=== PATIENT | male | born 1940 | race Caucasian/White ===

== ENCOUNTER → 2018-06-25 | Outpatient (CLI) | payer OTHER ==
[~2018-06-25] MED LIST: AMLO5TAB9 PO; ASPI-1181 PO; ATEN50TA PO; DOCU-272 PO; FENO160T16 PO; LISI10TA7 PO; MULT1CAP32 PO; NORT25CA3 PO; SIMV10TA6 PO; TYLENOL ARTHRITIS PO
== END | disposition home or self-care (01) ==
LOC: RAH 13:38
PROVIDERS: ATTEND Family Medicine
DX: S67.32XA Crushing injury of left wrist, initial encounter (principal); M19.032 Primary osteoarthritis, left wrist; W23.0XXA Caught, crushed, jammed, or pinched between moving objects, initial encounter; Y93.89 Activity, other specified; Y92.89 Other specified places as the place of occurrence of the external cause; Y99.8 Other external cause status
CPT/HCPCS: 73110

== ENCOUNTER → 2018-08-19 | Outpatient (CLI) | payer OTHER | END | disposition home or self-care (01) | LOC: RAH 09:35 | PROVIDERS: ATTEND Internal Medicine Critical Care Medicine | DX: Z01.818 Encounter for other preprocedural examination (principal); M85.88 Other specified disorders of bone density and structure, other site; M47.814 Spondylosis without myelopathy or radiculopathy, thoracic region; M41.84 Other forms of scoliosis, thoracic region | CPT/HCPCS: 71046 ==

== ENCOUNTER → 2019-02-24 | Outpatient (CLI) | payer OTHER | END | disposition home or self-care (01) | LOC: LAB 16:38 | PROVIDERS: ATTEND Internal Medicine Critical Care Medicine | DX: M17.0 Bilateral primary osteoarthritis of knee (principal); M25.761 Osteophyte, right knee; M25.462 Effusion, left knee; M25.461 Effusion, right knee | CPT/HCPCS: 73562 ==

== ENCOUNTER → 2019-04-01 | Outpatient (CLI) | payer OTHER ==
[~2019-04-01] MED LIST changes: -SIMV10TA6 PO; +SIMV10TA97 PO
== END | disposition home or self-care (01) ==
LOC: RAH 13:19
PROVIDERS: ATTEND Internal Medicine Critical Care Medicine
DX: Z01.89 Encounter for other specified special examinations (principal); Z96.611 Presence of right artificial shoulder joint
CPT/HCPCS: 71046

== ENCOUNTER 2023-08-05 05:04 | Observation (INO) | payer OTHER ==
[2023-07-31 10:59] VITALS: BP 119/66; PULSE 50; RESP 18
[~2023-08-05] VITALS: Ht 170.2 cm; Wt 96.5 kg
[2023-08-05] VITALS (29 sets, daily range): BP systolic 105–144; BP diastolic 50–89; PULSE 53–82; RESP 11–19; O2SAT 96
[~2023-08-05 05:04] MED LIST changes: +AMLO-257 PO; -AMLO5TAB9 PO; -ASPI-1181 PO; +ASPI-1443 PO; -DOCU-272 PO; +DOCU-280 PO; +LISI10TA24 PO; -LISI10TA7 PO
[2023-08-05] MEDS: LACTATED RINGERS 1000ML 1,000 ML IV ONE (05:42)
[2023-08-05] MEDS: CEFAZOLIN SODIUM 2 GM VIAL ONE (05:42)
[2023-08-05] MEDS ORDERED: CEFAZOLIN SODIUM 1 GM VIAL ONE (06:40)
[2023-08-05] MEDS ORDERED: GENTAMICIN SULFATE 80 MG/2 ML VIAL ONE (06:40)
[2023-08-05] MEDS ORDERED: TRANEXAMIC ACID 1000MG/10ML ONE (06:40)
[2023-08-05] MEDS ORDERED: LIDOCAINE PF 100MG/5ML (2%) SYRINGE 5ML ONE (06:41)
[2023-08-05] MEDS ORDERED: FENTANYL CITRATE PF 50 MCG/1 ML 2ML VIAL ONE (06:41)
[2023-08-05] MEDS ORDERED: PROPOFOL 1000 MG/100 ML 100 ML IV ONE (06:44)
[2023-08-05] MEDS ORDERED: LISI20TA24 PO (07:09)
[2023-08-05] MEDS ORDERED: GABA300C PO (07:09)
[2023-08-05] MEDS ORDERED: TRAM50TA4 PO (07:09)
[2023-08-05] MEDS ORDERED: TURMERIC PO (07:09)
[2023-08-05] MEDS ORDERED: ONDANSETRON 4MG INJ ONE (07:18)
[2023-08-05] MEDS ORDERED: DEXAMETHASONE SOD PHOSPHATE 10MG/ML 1ML VIAL ONE (07:18)
[2023-08-05] MEDS ORDERED: EPHEDRINE SULFATE 50 MG/ML AMPULE ONE (07:20)
[2023-08-05] MEDS: CEFAZOLIN SODIUM 1 GM VIAL IRRIG ONE (08:19)
[2023-08-05] MEDS: 0.9%NACL 48.45 ML, ROPIVACAINE 0.5% 49.25ML, EPINEPH 0.5MG KETOROLAC 30MG,CLONIDINE 80MCG IV PRN (08:19)
[2023-08-05] MEDS ORDERED: TRAMADOL HCL 50 MG TABLET PO PRN (11:00)
[2023-08-05] MEDS ORDERED: ACETAMINOPHEN 325 MG TAB PO PRN ×2 (11:00→11:30)
[2023-08-05] MEDS ORDERED: ACETAMINOPHEN 325 MG TAB PO SCH (11:30)
[2023-08-05] MEDS ORDERED: LACTULOSE 20 GM/30 ML UDCUP PO PRN (11:30)
[2023-08-05] MEDS ORDERED: DIPHENHYDRAMINE HCL 25 MG CAPSULE PO SCH (11:30)
[2023-08-05] MEDS ORDERED: ONDANSETRON 4MG INJ IVP PRN (11:30)
[2023-08-05] MEDS ORDERED: BENZOCAINE/MENTH/CETYLPYRD CL 1 EACH LOZENGE MM PRN (11:30)
[2023-08-05] MEDS ORDERED: MAG/ALUM/SIMETH 30 ML UDCUP PO PRN (11:30)
[2023-08-05] MEDS ORDERED: DIPHENOXYLATE HCL/ATROPINE 2.5/0.025 MG TAB PO PRN (11:30)
[2023-08-05] MEDS ORDERED: DIPHENHYDRAMINE HCL 25 MG CAPSULE PO PRN (11:30)
[2023-08-05] MEDS: HYDROMORPH /0.9% NACL/PF PCA 50 ML IV PRN (11:57)
[2023-08-05] MEDS: 0.9%NACL 1000ML 1,000 ML IV SCH (12:12)
[2023-08-05] MEDS: SIMVASTATIN 10 MG TABLET PO SCH (20:31)
[2023-08-05] MEDS: AMLODIPINE 5 MG TAB PO SCH (20:31)
[2023-08-05] MEDS: LISINOPRIL 20 MG TABLET PO SCH (20:32)
[2023-08-05] MEDS: ACETAMINOPHEN 1,000 MG/100 ML VIAL IV ONE (21:12)
[2023-08-05] MEDS: FAMOTIDINE 20MG VIAL IV ONE (21:12)
[2023-08-05] MEDS: CEFAZOLIN SODIUM 2 GM VIAL IVPB SCH (23:45)
[2023-08-06 03:57] LABS: HEMATOCRIT 36.1 % (42-54); MEAN CORPUSCULAR HEMOGLOBIN 32.7 pg (27.0-33.0); MEAN CORPUSCULAR HGB CONC 33.2 g/dL (32.0-36.0); MEAN CORPUSCULAR VOLUME 98.4 fL (79-99); RED BLOOD CELL COUNT(AUTO) 3.67 MIL/uL (4.50-6.20); RED CELL DISTRIBUTION WIDTH 12.8 % (11.0-15.5); WHITE BLOOD COUNT (AUTO) 20.7 K/uL (4.8-10.8)
[2023-08-06 03:59] LABS: CREATININE 1.4 mg/dL (0.5-1.3); POTASSIUM 4.6 mmol/L (3.5-5.1)
[2023-08-06 04:03] LABS: INR <= 0.93 (0.85-1.15); PROTHROMBIN TIME 10.9 SEC (9.6-11.6)
[2023-08-06 04:11] VITALS: BP 133/73; PULSE 77; RESP 18
[2023-08-06 07:45] VITALS: O2SAT 96
[2023-08-06 08:00] VITALS: BP 114/54; PULSE 72; RESP 19
[2023-08-06] MEDS: TURMERIC PO SCH (08:13)
[2023-08-06] MEDS: RIVAROXABAN 10 MG TABLET PO SCH (08:14)
[2023-08-06] MEDS: ATENOLOL 50 MG TABLET PO SCH (08:15)
[2023-08-06] MEDS: TRAMADOL HCL 50 MG TABLET PO PRN (08:24)
[2023-08-06 11:18] VITALS: BP 136/71; PULSE 76; RESP 18
== END 2023-08-06 17:45 | disposition home or self-care (01) ==
LOC: DAH 05:04 → DAHIP 05:05 → 4AH 10:15
PROVIDERS: ADMIT Orthopaedic Surgery; ATTEND Orthopaedic Surgery
DX: M17.11 Unilateral primary osteoarthritis, right knee (principal); I12.9 Hypertensive chronic kidney disease with stage 1 through stage 4 chronic kidney disease, or unspecified chronic kidney disease; N18.30 Chronic kidney disease, stage 3 unspecified; E78.5 Hyperlipidemia, unspecified; G62.9 Polyneuropathy, unspecified; Z85.46 Personal history of malignant neoplasm of prostate; Z88.5 Allergy status to narcotic agent; Z96.611 Presence of right artificial shoulder joint; Z86.2 Personal history of diseases of the blood and blood-forming organs and certain disorders involving the immune mechanism; Z79.899 Other long term (current) drug therapy; Z90.49 Acquired absence of other specified parts of digestive tract
CPT/HCPCS: 87641; 27447; 96365; 96366 ×3; 97161; 97012; 97116 ×3; 97530 ×4; 96368; 80048; 85027; 85610; 36415; A6260; G0378 ×29; A4510; A4663; J7120 ×2; A4215 ×2; A4649 ×4; J3490 ×5; J3010; J0690 ×5; J1100; J2001; J1580 ×2; J2704; J2405; A6223; A4930; C1763 ×2; C1776; A5120; A4223; A4222; A4221; A6450; J7030; 96375